=== PATIENT | female | born 1985 ===

== ENCOUNTER 2020-01-15 00:58 | Inpatient (IN) | payer OTHER ==
[2020-01-15] VITALS (8 sets, daily range): BP systolic 91–124; BP diastolic 55–81
[2020-01-15] MEDS ORDERED: OXYTOCIN 30 UNITS IN 0.9% NaCl 500ML IV BAG (J2590) As Ordered ONE (01:22)
[2020-01-15] MEDS ORDERED: LR 1,000 ML IV SCH (01:30)
[2020-01-15] MEDS ORDERED: LACTATED RINGER'S 1000 ML IV ONE (01:30)
[2020-01-15 02:07] LABS: HEMATOCRIT 37.6 % (36.0-47.0); HEMOGLOBIN 12.4 g/dl (12.0-15.5); MEAN CORPUSCULAR HEMOGLOBIN 29.4 pg (27.0-33.0); MEAN CORPUSCULAR VOLUME 89.1 fl (80.0-96.0); PLATELET COUNT, AUTOMATED 206 10^3/uL (150-450); RED BLOOD COUNT 4.22 10^6/uL (4.00-5.40); WHITE BLOOD COUNT 8.9 10^3/uL (4.0-10.0)
[2020-01-15 02:32] LABS: CORD GAS ABE A -0.8; CORD GAS ABE V -0.2; CORD GAS HCO3 A 26.5 MEQ/L; CORD GAS HCO3 V 24.7 MEQ/L; CORD GAS O2 SAT A 36.2 %; CORD GAS PCO2 A 54.5 mmHg; CORD GAS PCO2 V 41.2 mmHg; CORD GAS PH A 7.305 UNITS; CORD GAS PH V 7.396 UNITS; CORD GAS PO2 A 18.5 mmHg; CORD GAS PO2 V 37.2 mmHg; CORD GAS SBC A 22.3 MEQ/L; CORD GAS TCO2 A 28.2 MEQ/L
[2020-01-15] MEDS ORDERED: OXYTOCIN DRIP 30 UNITS in IV 1 EA IV ONE (02:45)
[2020-01-15] MEDS ORDERED: RHOGAM 300 MCG (1500 IU) INJ (J2790) IM SCH (02:45)
[2020-01-15] MEDS ORDERED: DOCUSATE SODIUM 100 MG CAP PO PRN (02:45)
[2020-01-15] MEDS ORDERED: MOM 30ML SUSPENSION UDC PO PRN (02:45)
[2020-01-15] MEDS ORDERED: DIBUCAINE 1% OINTMENT 30GM TOP PRN (02:45)
[2020-01-15] MEDS ORDERED: OXYTOCIN INJ 10 UNITS/ML VIAL (J2590) IV ONE (02:45)
[2020-01-15] MEDS ORDERED: MEASLES,MUMPS,RUBELLA VACCINE INJ (MMR-II) (90707) SC SCH (02:45)
[2020-01-15] MEDS ORDERED: ACETAMINOPHEN TAB 650MG DOSE (2X325MG) PO PRN (02:45)
[2020-01-15] MEDS ORDERED: IBUPROFEN 600 MG TAB PO PRN (02:45)
[2020-01-15] MEDS ORDERED: ANUSOL HC CREAM 30GM TOP PRN (02:45)
[2020-01-15] MEDS ORDERED: METHYLERGONOVINE MALEATE 0.2 MG TAB PO PRN (02:45)
[2020-01-15] MEDS: IBUPROFEN 800 MG TAB PO PRN ×2 (04:01→12:24)
[2020-01-15] MEDS: ACETAMINOPHEN 500 MG TAB PO PRN ×2 (05:11→19:38)
[2020-01-15] MEDS: PRENATAL VITAMINS CHEWABLE TABLET PO SCH (07:39)
--- NOTE | 2020-01-15 09:40 | HPE ---
DATE OF ADMISSION: 01/15/2020 This is a 34-year-old, 4, para 2, A 1, last menstrual period (LMP) 04/18/2019, estimated date of confinement (EDC) is 01/26/2020 at 38 and 4 weeks of gestation with spontaneous rupture of membranes, active labor, 8 cm, with clear liquor. PAST HISTORY: December of 2014, at 38 weeks, spontaneous vaginal delivery, 3.4 kg. 07/09/2017, at 38 weeks, spontaneous vaginal delivery, 6 pounds 6 ounces. In September of 2016, a spontaneous , complete, no issues. LABORATORIES: Are O positive, HIV negative, hepatitis negative, rapid plasma reagin (RPR) negative, rubella immune, varicella immune. Urine negative. Gonorrhea and chlamydia are negative. Early 1- hour glucose 115. 28-week glucose tolerance test (GTT) 130, and she is group B streptococcus (GBS) negative. Blood pressure is 122/81, respirations 18, pulse 78, temperature is 98.1. On examination, she appears to be considerably distressed. Symphysis fundus height is 38, clear liquor, vertex occipitoanterior (OA), 0 station at 9 cm, actively pushing, category one strip. Anticipate an imminent delivery. Intravenous (IV) status is established. Epidural is requested.
--- NOTE | 2020-01-16 05:30 | IPNPDOC ---
Progress Note Date of Service: January 16, 2020 Day#: 2 Progress Note PPD 2 SUBJECT: Mindy is a 34yo [id number] s/p uncomplicated after presenting in active labor at 38w4d, doing well day # 2. She has been ambulating, voiding spontaneously without issue and tolerating regular diet. Breast feeding without issue. Reports lochia is like a normal period. No f/c/n/v/CP/SOB. OBJECTIVE: VITAL SIGNS: Within normal limits, afebrile. Alert and oriented times three. Abdomen: Fundus firm at U-2. Soft, NTTP. Extremities: no pain with palpation of calves ASSESSMENT: Mindy is a 34yo [id number] s/p uncomplicated after presenting in active labor at 38w4d, doing well day # 2. Vitals within normal limits, afebrile, hemodynamically stable with no evidence of infection. PLAN: 1. Discharge to home today. 2. Tylenol and Motrin for pain. 3. Encourage breast feeding and ambulation. 4. Routine PP visit in 6 weeks in clinic. 5. Discussed return precautions at length. 6. Vaginal rest 6 weeks no heavy lifting 7. Regular diet Dr. Nichole Jensen MD VS, I&O, 24H, Fishbone Vital Signs/I&O Vital Signs Date Time Temp Pulse Resp B/P (MAP) Pulse Ox O2 Delivery O2 Flow Rate FiO2 01/15/20 18:00 98.2 82 18 91/55 (67) 01/15/20 06:00 100 Room Air Nichole Jensen MD January 16, 2020 05:30
[2020-01-16] MEDS ORDERED: ACET-683 PO (05:32)
[2020-01-16] MEDS ORDERED: IBUP80TA PO (05:32)
--- NOTE | 2020-01-16 05:34 | DS.PDOC ---
Discharge Summary General Date of Admission January 15, 2020 at 01:09 Date of Discharge January 16, 2020 Discharge Summary PROCEDURES PERFORMED DURING STAY: spontaneous vaginal delivery ADMITTING DIAGNOSES: 1. 38w4d active labor with SROM DISCHARGE DIAGNOSES: 1. 38w4d active labor with SROM, delivered COMPLICATIONS/CHIEF COMPLAINT: LABOR. HISTORY OF PRESENT ILLNESS/HOSPITAL COURSE: Mindy is a 34yo [id number] s/p uncomplicated after presenting in active labor at 38w4d, doing well day # 2. She had a benign course. At time of discharge vitals were within normal limits, afebrile, hemodynamically stable with no evidence of infection. DISCHARGE MEDICATIONS: Please see below. ALLERGIES: Please see below. PHYSICAL EXAMINATION ON DISCHARGE: VITAL SIGNS: Within normal limits, afebrile. Alert and oriented times three. Abdomen: Fundus firm at U-2. Soft, NTTP. Extremities: no pain with palpation of calves LABORATORY DATA: Please see below. DISPOSITION: home DISCHARGE PLAN/INSTRUCTIONS: 1. Discharge to home today. 2. Tylenol and Motrin for pain. 3. Encourage breast feeding and ambulation. 4. Routine PP visit in 6 weeks in clinic. 5. Discussed return precautions at length. 6. Vaginal rest 6 weeks no heavy lifting 7. Regular diet DISCHARGE CONDITION: Stable TIME SPENT ON DISCHARGE: Greater than [address] Nichole Jensen MD Vital Signs/I&Os Vital Signs Date Time Temp Pulse Resp B/P (MAP) Pulse Ox O2 Delivery O2 Flow Rate FiO2 01/15/20 18:00 98.2 82 18 91/55 (67) 01/15/20 06:00 100 Room Air Discharge Medications Scheduled PRN Acetaminophen (Acetaminophen) 500 Mg Tablet, 1,000 MG PO Q6HP PRN for PAIN LEVEL 6-10 Ibuprofen (Ibuprofen) 800 Mg Tablet, 800 MG PO Q8HP PRN for PAIN LEVEL 6-10 Allergies Coded Allergies: No Known Allergies (Unverified , 01/15/20) Nichole Jensen MD January 16, 2020 05:34
[2020-01-16 05:55] VITALS: BP 98/56
[2020-01-16 07:55] LABS: HEMATOCRIT 35.6 % (36.0-47.0); HEMOGLOBIN 11.9 g/dl (12.0-15.5); MEAN CORPUSCULAR HEMOGLOBIN 30.2 pg (27.0-33.0); MEAN CORPUSCULAR HGB CONC 33.4 g/dl (32.0-36.5); MEAN CORPUSCULAR VOLUME 90.4 fl (80.0-96.0); PLATELET COUNT, AUTOMATED 218 10^3/uL (150-450); RED BLOOD COUNT 3.94 10^6/uL (4.00-5.40); WHITE BLOOD COUNT 9.7 10^3/uL (4.0-10.0)
[2020-01-16] MEDS: ACETAMINOPHEN 500 MG TAB PO PRN (08:22)
[2020-01-16] MEDS: PRENATAL VITAMINS CHEWABLE TABLET PO SCH (08:22)
--- NOTE | 2020-01-22 01:47 | DN ---
DATE: 01/15/2020 This lady is a 34-year-old 4, para 2 admitted at 8 to 9 cm with spontaneous rupture of membranes, had a spontaneous vaginal delivery, live female weighing 7 pounds, 7 ounces, 3380 grams, score of 9 and at 1 and 5 minutes respectively. Arterial and venous pH were performed. Placenta delivered spontaneously thereafter. A three-vessel cord, membranes and tissues intact. Perineum was intact. Anterior, posterior and lateral valverde were complete. Uterus contracted well under Pitocin. Blood gases are pending and the patient and baby did well.
== END 2020-01-16 14:20 | disposition home or self-care (01) | DRG 807 ==
LOC: M LDO 00:58 → M LDI 01:09 → M OBS 04:56
PROVIDERS: ADMIT Obstetrics & Gynecology; ATTEND Obstetrics & Gynecology
PROC: 10E0XZZ Delivery of Products of Conception, External Approach (ICD-10-PCS; principal; 2020-01-15)
DX: O80 Encounter for full-term uncomplicated delivery (principal); Z37.0 Single live birth; Z3A.38 38 weeks gestation of pregnancy